=== PATIENT | male | born 1980 ===

== ENCOUNTER 2019-07-22 09:14 | Inpatient (IN) | payer OTHER ==
[2019-07-22] VITALS (19 sets, daily range): BP systolic 110–144; BP diastolic 73–93
[~2019-07-22] VITALS: Ht 157.5 cm; Wt 89.4 kg
[2019-07-22] MEDS ORDERED: LR 1000ml 1,000 ML IVLG SCH (09:37)
--- NOTE | 2019-07-22 09:38 | Anethesia Preoperative Eval ---
Anesthesia Pre-op PMH/ROS General Date of Evaluation: Jul 22, 2019 Time of Evaluation: 11:11 Anesthesiologist: Gwendolyn ASA Score: ASA 2 Mallampati Score Class I : Soft palate, uvula, fauces, pillars visible Class II: Soft palate, uvula, fauces visible Class III: Soft palate, base of uvula visible Class IV: Only hard plate visible Mallampati Classification: Class II Surgeon: Dallin Diagnosis: Back Pain Surgical Procedure: ALIF L5-S1 Anesthesia History: none Family History: no anesthesia problems Allergies: Coded Allergies: No Known Allergies (Unverified , 07/22/19) Medications: see eMAR Patient NPO?: Yes Past Medical History Cardiovascular: Reports: other - HL Gastrointestinal/Genitourinary: Reports: GERD Neurologic/Psychiatric: Reports: depression/anxiety Other: obesity - BMI 36 Anesthesia Pre-op Phys. Exam Physician Exam Vital Signs Date Time Temp Pulse Resp B/P (MAP) Pulse Ox O2 Delivery O2 Flow Rate FiO2 07/22/19 09:51 98.4 71 18 127/80 (96) 97 07/22/19 10:04 Room Air Constitutional: NAD Neurologic: CN 2-12 intact Cardiovascular: RRR Respiratory: CTA Gastrointestinal: S/NT/ND Airway Exam Mallampati Score: Class II MO: full ROM: full Teeth: missing, intact Anesthesia Pre-op A/P Risk Assessment & Plan Assessment: ASA 2 Plan: GA, SED, GlideScope Go Status Change Before Surgery: No Pre-Antibiotics Dru Grams Ancef iv Given Within 1 Hr of Incision: Yes Time Given: 11:31 Gino Snow MD Jul 22, 2019 09:38
[2019-07-22] MEDS ORDERED: Labetalol 5mg/ml 20ml vial IV PRN (09:45)
[2019-07-22] MEDS ORDERED: LORazepam Inj 2mg/ml 1ml IV PRN (09:45)
[2019-07-22] MEDS ORDERED: oxyCODONE HCL/Acetaminophen 5/325mg ORAL PRN (09:45)
[2019-07-22] MEDS ORDERED: HYDROcodone/Acetamin 5/325 tab ORAL PRN (09:45)
[2019-07-22] MEDS ORDERED: Metoclopramide 10mg/2ml Inj IVP PRN (09:45)
[2019-07-22] MEDS ORDERED: Acetaminophen (Non formulary) 100 ML IV ONE (09:45)
[2019-07-22] MEDS ORDERED: Meperidine 50mg/ml Inj(FOR RIGORS ONLY) IVP PRN (09:45)
[2019-07-22] MEDS ORDERED: Ketorolac 30mg Inj IV PRN ×2 (09:45)
[2019-07-22] MEDS ORDERED: Hydromorphone 0.5mg/0.5ml inj IVP PRN (09:45)
[2019-07-22] MEDS ORDERED: HYDROcodone/Acetamin 7.5/325 tab ORAL PRN ×2 (09:45→12:45)
[2019-07-22] MEDS ORDERED: Atropine Sulfate 0.4mg/ml inj IVP PRN (09:45)
[2019-07-22] MEDS ORDERED: DiphenhydrAMINE 50mg/ml Inj IVP PRN ×2 (09:45→13:00)
[2019-07-22] MEDS ORDERED: Midazolam 2mg/2ml Inj IVP PRN (09:45)
[2019-07-22] MEDS ORDERED: fentaNYL 100 mcg/2 mL IV PRN (09:45)
[2019-07-22] MEDS ORDERED: IBUPROFEN600 MG ORAL (10:13)
--- NOTE | 2019-07-22 10:40 | Pre-Procedure Note/Attestation ---
Pre-Procedure Note/Attestation Complete Prior to Procedure Planned Procedure: not applicable Procedure Narrative: Instability with Low Back Pain L5/S1, Planned L5/S1 Anterior Lumbar Decompression and Fusion w/ Instrumentation Indications for Procedure Pre-Operative Diagnosis: Instability with Low Back Pain L5/S1 Attestation I attest that I discussed the nature of the procedure; its benefits; risks and complications; and alternatives (and the risks and benefits of such alternatives ), prior to the procedure, with the patient (or the patient's legal business office representative). I attest that, if there was a reasonable possibility of needing a blood transfusion, the patient (or the patient's legal business office representative) was given the [place] Department [facility] [employer] Services standardized written summary, pursuant to the Ricardo Tallmadge Blood Safety Act ([place] Health and Safety Code # 1645, as amended). I attest that I re-evaluated the patient just prior to the surgery and that there has been no change in the patient's H&P, except as documented below: Kip Ascencio Jul 22, 2019 10:40
[2019-07-22] MEDS ORDERED: Rocuronium Bromide 50mg/5ml Inj IV ONE (10:47)
[2019-07-22] MEDS ORDERED: Sodium Chloride 10ml vial INJ ONE (10:54)
[2019-07-22] MEDS ORDERED: Lidocaine 1% MPF 10mg/ml 5ml ONE (10:54)
[2019-07-22] MEDS ORDERED: Dexamethasone 4mg/ml vial ONE (10:54)
[2019-07-22] MEDS ORDERED: Propofol 1,000mg/ 100ml btl IV ONE (11:00)
[2019-07-22] MEDS ORDERED: Sterile Water Irrig 1000ml IRRIG ONE (11:00)
[2019-07-22] MEDS ORDERED: NS Irrig 1000ml ONE (11:00)
[2019-07-22] MEDS ORDERED: Neostigmine 1mg/ml 10ml Inj ONE (11:00)
[2019-07-22] MEDS ORDERED: LR 1000ml ONE (11:00)
--- NOTE | 2019-07-22 11:04 | Immediate Post-Op Evaluation ---
Immediate Post-Op Evalulation Immediate Post-Op Evalulation Procedure: ALIF L5-S1 Date of Evaluation: Jul 22, 2019 Time of Evaluation: 13:17 IV Fluids: 700 LR Blood Products: 0 Estimated Blood Loss: 40 Urinary Output: 50 Blood Pressure Systolic: 130 Blood Pressure Diastolic: 88 Pulse Rate: 96 Respiratory Rate: 16 O2 Sat by Pulse Oximetry: 96 Temperature (Fahrenheit): 98.2 Pain Score (1-10): 3 Nausea: No Vomiting: No Complications 0 Patient Status: awake, reacts, patent, extubated, none Hydration Status: adequate Dru Grams Ancef IV Given Within 1 Hr of Incision: Yes Time Given: 11:31 Gino Snow MD Jul 22, 2019 11:04
[2019-07-22] MEDS ORDERED: Heparin 5000 units/ml inj ONE (11:05)
[2019-07-22] MEDS ORDERED: Bacitracin 50000 Units Vial ONE (11:06)
[2019-07-22] MEDS ORDERED: fentaNYL 100 mcg/2 mL IV ONE ×2 (11:06→12:26)
[2019-07-22] MEDS ORDERED: Gelfoam Size TOPIC ONE (11:06)
[2019-07-22] MEDS ORDERED: Thrombin 5000 units TOPIC ONE (11:06)
[2019-07-22] MEDS ORDERED: Ropivacaine 5mg/ml Vial 30ml INJ ONE (11:06)
[2019-07-22] MEDS ORDERED: Lidocaine 1% Plain 30 ml INJ ONE (11:08)
[2019-07-22] MEDS ORDERED: Glycopyrrolate 0.2mg/ml 1ml Vial ONE (12:39)
[2019-07-22] MEDS ORDERED: Acetaminophen 650 MG SUPP RECTAL PRN (12:45)
[2019-07-22] MEDS ORDERED: HYDROmorphone 1mg/ml Carpuject IVP PRN (12:45)
[2019-07-22] MEDS ORDERED: Naloxone 0.4mg/ml Inj IVP PRN ×2 (12:45→13:00)
[2019-07-22] MEDS ORDERED: HYDROmorphone 1mg/ml Carpuject SUBQ PRN (12:45)
--- NOTE | 2019-07-22 12:45 | Operative Note - PDOC ---
Operative Note Operative Note Chief Complaint: Low Back Pain Pre-op Diagnosis: Instability with Low Back Pain L5/S1 Procedure: L5/S1 Anterior Lumbar Decompression and Fusion with Instrumentation. Post-op Diagnosis: same as pre-op Operative Findings: consistent w/pre-op dx studies Surgeon: Dallin Trashman: TIMOTHY Ascencio Additional Surgeons: Dr. Redmond - Vascular Access Anesthesiologist: Quinton Cross Anesthesia: general Specimen: yes Complications: none Condition: stable Estimated Blood Loss: minimal Drains: none Implant(s) used?: Yes - Bradley InFix Device with Bradley DBM< Kip Ascencio Jul 22, 2019 12:44
[2019-07-22] MEDS ORDERED: PCA Education Pamphlet MISC ONE (13:00)
[2019-07-22] MEDS ORDERED: LORazepam 1mg tab ORAL PRN (13:00)
[2019-07-22] MEDS ORDERED: Rate Change PCA 1 Each MISC PRN (13:00)
--- NOTE | 2019-07-22 14:30 | NUR ---
Received report from Reshma , pt awake, A/O x 4, complained of headache, dressing on abd , CDI, pt complained of RLE numbness and tingling , pt heena LE able to move toes, warm to touch, NPO, , pts on EXPERIMENTAL MECHANIC ELECTRICAL, an capnography, sat 96-97%, SCDs on heena LE, IVF infusing. ICe packs PRN. pts due to void, call light within reach , bed in low position, bed alarm on , fall precaution maintained. will continue to monitor,.
[2019-07-22] MEDS: PCA HYDROmorphone 1mg/ml 30 ML IV PRN (15:02)
--- NOTE | 2019-07-22 15:40 | Diagnostic Imaging Report ---
INDICATION: Low back pain, intraoperative TECHNIQUE: Intraoperative imaging Fluoroscopy time: 10.9 seconds Total dose: 0.56555 mGym2 Total number of images: 3 COMPARISON: None FINDINGS: Intraoperative imaging demonstrates surgical tool projected anterior to the L5 superior endplate, the anterior S1, and at the level of the L5-S1 disc. Subsequent images document placement of a disc spacer at L5-S1. IMPRESSION: Intraoperative imaging, as described
--- NOTE | 2019-07-22 15:40 | Diagnostic Imaging Report ---
INDICATION: Low back pain, intraoperative TECHNIQUE: Intraoperative imaging Fluoroscopy time: 10.9 seconds Total dose: 0.23065 mGym2 Total number of images: 3 COMPARISON: None FINDINGS: Intraoperative imaging demonstrates surgical tool projected anterior to the L5 superior endplate, the anterior S1, and at the level of the L5-S1 disc. Subsequent images document placement of a disc spacer at L5-S1. IMPRESSION: Intraoperative imaging, as described
[2019-07-22] MEDS: D5 1/2NS w/KCl 20mEq 1,000 ML IV SCH (16:33)
--- NOTE | 2019-07-22 17:30 | Operative Note - Dictated ---
DATE OF OPERATION: 07/22/2019 SURGEON: Kip Zamarripa M.D. SENIOR SCHEDULER: BRIAN Gan. CO-SURGEON: Chevy Redmond M.D. for vascular approach, mobilization of the aorta and vena cava. PREOPERATIVE DIAGNOSES: Unstable spondylolisthesis at L5-S1 with a 12 mm displacement of L5 over S1 and a definable pars defect bilaterally at L5-S1 with evidence of mechanical instability and nerve root irritation involving the L5 and S1 roots bilaterally. POSTOPERATIVE DIAGNOSES: Unstable spondylolisthesis at L5-S1 with a 12 mm displacement of L5 over S1 and a definable pars defect bilaterally at L5-S1 with evidence of mechanical instability and nerve root irritation involving the L5 and S1 roots bilaterally. OPERATIVE PROCEDURE: Anterior retroperitoneal approach to the lumbar spine with vessel mobilization retraction by Dr. Redmond using a table fixed frame, anterior annulotomy, nuclear diskectomy, partial vertebrectomy, bilateral neurolysis L5-S1, open reduction internal fixation of the lumbosacral disc space using an InFix device medium size with 10 mm of height and 9 + 3 degrees of built-in lordosis the 9 degrees being added to the sacral side of the construct, bone grafting using bone morphogenic protein and local bone with use of Cell Saver and image intensification. DESCRIPTION OF PROCEDURE: The patient was prepped and draped in the supine position after induction of satisfactory general anesthesia. Approach was accomplished by Dr. Redmond mobilizing the aorta and vena cava clearing the middle sacral and exposing the anterior anulus of the disc at L5-S1. Center of the disc was marked and checked with image intensification. The anterior anulus was then incised with a 10 blade and the periosteal edges of the soft tissue covering at the anterior inferior aspect of the body of L5 and the superior aspect anteriorly in the sacrum was then removed with sharp dissection and with cautery. The cartilaginous end plate on the inferior aspect of L5 and the superior aspect of the sacrum was then removed using angled and straight larger smaller angled curettes, Kerrisons, and pituitaries. Lordotic distraction plugs were placed right and left beginning at 8 mm and extending to 15 in order to create further visualization for posterior dissection to the posterior aspect of the vertebral body of L5 and S1 where the posterior disc anulus was released. Osteophytes were removed and a bilateral foraminotomy was accomplished. Once the entire disc and cartilaginous end plate had been removed centrally, the lateral anulus and disc was left intact. A spacer 10 mm of medium construct was used. 9 + 3 degrees of lordosis were added to the final endplates, which were inserted. Again rechecked for position. The side struts were then inserted and cold welded and the position of the implant was again checked. There was a promontory of the anterior sacrum, but good contact of the inferior endplate and the superior endplate with good central positioning of the implant on AP view and good positioning as well within a couple millimeters of the canal floor on lateral with good contact on each of the endplates. The vessels were checked. The wound was closed in layers including the anterior posterior sheath, subcutaneous, and skin. The patient was placed in a bulky compression dressing, returned to recovery room in good condition. Kip Zamarripa M.D. DR: CHEIKH JOB#: [id number] CC:
--- NOTE | 2019-07-22 18:00 | Operative Note - Dictated ---
DATE OF OPERATION: 07/22/2019 VASCULAR SURGEON: Chevy Redmond M.D. SPINE SURGEON: Kip Zamarripa M.D. CONTROL SYSTEMS DESIGNER: Irene Gan PREOPERATIVE DIAGNOSIS: Lumbar pain. POSTOPERATIVE DIAGNOSIS: Lumbar pain. PROCEDURE PERFORMED: Anterior retroperitoneal exposure L5-S1, right retroperitoneal approach. INDICATIONS: The patient is a very pleasant gentleman who was seen prior to surgery. No prior anterior abdominal surgery. No history of deep venous thrombosis. Bleeding complications were described. He has been made aware of the risks of vascular surgery including vascular injury, possible need for blood transfusion, deep venous thrombosis. DESCRIPTION OF FINDINGS: A low vertical midline incision was used. A right retroperitoneal approach was used. There was no peritoneal or ureteral violation. There was no vascular injury. Exposure of L5-S1 obtained below the iliac bifurcation confirmed using fluoroscopy. On completion, the peritoneum and ureter intact. Iliac vessels are intact. BLOOD LOSS: Less than 100 mL. COMPLICATIONS: None. DESCRIPTION OF PROCEDURE: The patient was taken to the operative room. General anesthesia was used. IV antibiotics given. Vickers catheter was placed. The patient's abdomen prepped and draped. Appropriate time-out for the procedure taken. A vertical midline incision made infraumbilically. The anterior fascia incised longitudinally in the midline. A plane was identified posterior to the right rectus abdominis and developed posterolaterally towards the patient's right. The retroperitoneal space was entered below the arcuate line. The peritoneum and ureter mobilized towards the patient's left exposing the right common iliac artery and vein. Dissection was carried superiorly and medially along the right iliac vessels. The anterior surface of L5-S1 palpated. The peritoneum and ureter mobilized towards the patient's left exposing the anterior surface of L5-S1. The medial border of the left iliac vein identified and swept laterally. The middle sacral vessels were ligated with vascular clips and divided and this allowed us to then expose the anterior surface of L5-S1. The Omni retractor blade was set in place. Fluoroscopy used to confirm the appropriate level. The instrumentation performed as dictated separately. On completion, the peritoneum and ureter intact. Iliac vessels were intact. Blood loss was less than 100 mL. The anterior fascia was then closed using #1 PDS in a running fashion. Skin and subcutaneous tissue were closed with 3-0 Vicryl, 4-0 Monocryl running subcuticular closure technique. Estimated blood loss less than 100 mL. Complications none. Chevy Redmond M.D. DR: BEAU JOB#: [id number] CC:
--- NOTE | 2019-07-22 18:54 | NUR ---
pt denies numbness or tingling on RLE/LLE, able to move toes, warm to touch, SCDs on, VS stable, due to void, will continue to monitor.
[2019-07-22] MEDS: PCA shift volume MISC SCH (19:00)
--- NOTE | 2019-07-22 19:30 | NUR ---
NURSE NOTES: Pt. received from KATARZYNA Bray. Pt. AAOx4, NC at 3L/min, O2 sat. 97%, wave capnography 36, no signs of respiratory distress and no shortness of breath at this time. Pt. on MANAGER MEDICAL, no complaints of pain. IV site right hand 20g asymptomatic, intact and patent; running D5 1/2NS with 20 mEq KCl at 100 cc/hr. Abdominal dressing clean, dry, and intact. Bed is low and locked, side rails x2 up, and call light is in reach. Will continue to monitor.
[2019-07-22] MEDS: ceFAZolin sod 1 GM in D5W 55 ML IV SCH (19:56)
[2019-07-23] VITALS (8 sets, daily range): BP systolic 104–122; BP diastolic 61–82
[2019-07-23] MEDS: D5 1/2NS w/KCl 20mEq 1,000 ML IV SCH ×3 (02:13→22:31)
[2019-07-23] MEDS: ceFAZolin sod 1 GM in D5W 55 ML IV SCH ×2 (02:13→10:14)
[2019-07-23] MEDS: PCA shift volume MISC SCH ×2 (07:26→19:07)
--- NOTE | 2019-07-23 07:48 | NUR ---
HAND-OFF: Report given to KATARZYNA Bingham.
--- NOTE | 2019-07-23 07:48 | NUR ---
NURSE NOTES: received patient in bed, patient AAOx4, RA, no signs of respiratory distress , denies pain or discomfort at this time, Patient on RETAIL SERVICES PROFESSIONAL,IVF patent and infusing well. Abdominal dressing clean, dry, and intact. Bed is low and locked, side rails x2 up, and call light is in reach.encouraged to use IS 10X/H, Encouraged to ambulate, Will continue to monitor. corinna ballard
--- NOTE | 2019-07-23 08:05 | General Progress Note ---
Assessment/Plan Assessment/Plan: Low Back Pain Instability with Low Back Pain L5/S1 L5/S1 Anterior Lumbar Decompression and Fusion with Instrumentation. PLAN 1. incentive spirometry 2. SCD 3. PT evaluation and therapy 4. Hydration 5. Pain management 6. discharge once stable with outpatient follow up Subjective Allergies: Coded Allergies: No Known Allergies (Unverified , 07/22/19) Subjective care noted post op care noted Objective Last 24 Hour Vital Signs Date Time Temp Pulse Resp B/P (MAP) Pulse Ox O2 Delivery O2 Flow Rate FiO2 07/23/19 04:00 65 15 99 07/23/19 04:00 98.5 65 15 107/71 (83) 99 07/23/19 00:00 66 20 98 07/23/19 00:00 98.6 66 20 122/82 (95) 98 07/22/19 21:00 Nasal Cannula 3.0 07/22/19 21:00 97.9 71 16 110/74 (86) 97 07/22/19 20:00 71 16 97 07/22/19 18:18 97 Nasal Cannula 2.0 28 07/22/19 18:00 98.3 79 18 111/73 (86) 97 07/22/19 18:00 79 18 97 07/22/19 17:00 98.6 85 20 115/80 (92) 98 07/22/19 17:00 75 19 96 07/22/19 16:30 74 18 95 07/22/19 16:27 98.9 83 18 116/73 (87) 97 07/22/19 16:00 98.3 80 18 121/82 (95) 96 07/22/19 16:00 78 20 96 07/22/19 15:45 87 20 95 07/22/19 15:45 98.1 80 18 122/78 (93) 96 07/22/19 15:39 88 18 96 07/22/19 15:32 97.8 07/22/19 15:15 98.1 79 18 128/80 (96) 95 07/22/19 15:15 79 18 95 07/22/19 15:00 80 17 94 07/22/19 14:49 97.8 80 18 124/79 (94) 94 07/22/19 14:00 97.5 77 15 132/85 96 Nasal Cannula 3 07/22/19 13:45 79 19 138/88 98 Nasal Cannula 3 07/22/19 13:30 71 14 139/78 97 Nasal Cannula 3 07/22/19 13:20 85 16 144/93 96 Simple Mask 6 07/22/19 13:10 73 15 120/79 97 Simple Mask 6 07/22/19 13:06 98.2 85 16 130/88 96 Simple Mask 6 07/22/19 13:03 96 16 96 07/22/19 10:04 Room Air 07/22/19 09:51 98.4 71 18 127/80 (96) 97 Intake and Output 07/22/19 07/23/19 19:00 07:00 Intake Total 150 ml 1100 ml Output Total 100 ml 350 ml Balance 50 ml 750 ml Intake IV Total 150 ml 1100 ml Output Urine Total 100 ml 350 ml # Voids 1 2 Height (Feet): 5 Height (Inches): 2.00 Weight (Pounds): 197 Objective WDWN NAD clear breath sounds bilaterally without rhonchi or wheeze [id number] without MRG NABS nontender no HSM no CCE nonfocal Jeffery Pelaez MD Jul 23, 2019 08:05
--- NOTE | 2019-07-23 08:44 | General Surgery Progress Note ---
General Surgery-Progress Note Subjective Procedure Performed L5/S1 Anterior Lumbar Decompression and Fusion with Instrumentation. Symptoms: improved Objective Last 24 Hour Vital Signs Date Time Temp Pulse Resp B/P (MAP) Pulse Ox O2 Delivery O2 Flow Rate FiO2 07/23/19 04:00 65 15 99 07/23/19 04:00 98.5 65 15 107/71 (83) 99 07/23/19 00:00 66 20 98 07/23/19 00:00 98.6 66 20 122/82 (95) 98 07/22/19 21:00 Nasal Cannula 3.0 07/22/19 21:00 97.9 71 16 110/74 (86) 97 07/22/19 20:00 71 16 97 07/22/19 18:18 97 Nasal Cannula 2.0 28 07/22/19 18:00 98.3 79 18 111/73 (86) 97 07/22/19 18:00 79 18 97 07/22/19 17:00 98.6 85 20 115/80 (92) 98 07/22/19 17:00 75 19 96 07/22/19 16:30 74 18 95 07/22/19 16:27 98.9 83 18 116/73 (87) 97 07/22/19 16:00 98.3 80 18 121/82 (95) 96 07/22/19 16:00 78 20 96 07/22/19 15:45 87 20 95 07/22/19 15:45 98.1 80 18 122/78 (93) 96 07/22/19 15:39 88 18 96 07/22/19 15:32 97.8 07/22/19 15:15 98.1 79 18 128/80 (96) 95 07/22/19 15:15 79 18 95 07/22/19 15:00 80 17 94 07/22/19 14:49 97.8 80 18 124/79 (94) 94 07/22/19 14:00 97.5 77 15 132/85 96 Nasal Cannula 3 07/22/19 13:45 79 19 138/88 98 Nasal Cannula 3 07/22/19 13:30 71 14 139/78 97 Nasal Cannula 3 07/22/19 13:20 85 16 144/93 96 Simple Mask 6 07/22/19 13:10 73 15 120/79 97 Simple Mask 6 07/22/19 13:06 98.2 85 16 130/88 96 Simple Mask 6 07/22/19 13:03 96 16 96 07/22/19 10:04 Room Air 07/22/19 09:51 98.4 71 18 127/80 (96) 97 I&O Intake and Output 07/22/19 07/23/19 19:00 07:00 Intake Total 150 ml 1100 ml Output Total 100 ml 350 ml Balance 50 ml 750 ml Intake IV Total 150 ml 1100 ml Output Urine Total 100 ml 350 ml # Voids 1 2 Dressing: dry Wound: clean Drains: none Additional Comments Patient NPO. Should ambulate today with Physical Therapy. Needs brace from home. Dr. Leonardo following. Kip Ascencio Jul 23, 2019 08:44
--- NOTE | 2019-07-23 12:26 | 48 Hour Post Anesthesia Eval ---
Post Anesthesia Evaluation Procedure: ALIF L5-S1 Date of Evaluation: Jul 23, 2019 Time of Evaluation: 12:25 Blood Pressure Systolic: 124 0: 78 Pulse Rate: 72 Respiratory Rate: 20 Temperature (Fahrenheit): 97.6 O2 Sat by Pulse Oximetry: 98 Airway: patent Nausea: No Vomiting: No Pain Intensity: 3 Hydration Status: adequate Cardiopulmonary Status: stable Mental Status/LOC: patient returned to baseline Follow-up Care/Observations: n/a Post-Anesthesia Complications: none Follow-up care needed: N/A Cecilio Cardenas MD Jul 23, 2019 12:26
--- NOTE | 2019-07-23 13:37 | NUR ---
CASE MANAGEMENT: INITIAL REVIEW 39YR OLD MALE HERE FOR ELECTIVE SURG CC: BACK PAIN SI: INSTABILITY WITH LOW BACK PAIN L5/S1 98.4 71 18 128/80 97% ON RA IS: L5/S1 ANTERIOR LUMBAR DECOMPRESSION AND FUSION WITH INSTRUMENTATION IV D5 @100ML/HR IV ANCEF X3 BAGS ELECTRONIC WARFARE LINGUIST DILAUDID BID \: IN SURGERY NOW CASE MANAGEMENT: REVIEW 07/23/2019 SI: POD# 1 L5/S1 ANTERIOR LUMBAR DECOMPRESSION AND FUSION WITH INSTRUMENTATION 98.4 71 18 128/80 97% ON RA IS: IV D5 @100ML/HR ELECTRONIC WARFARE LINGUIST DILAUDID BID \: 3E MED SURG UNIT
--- NOTE | 2019-07-23 13:50 | NUR ---
PT EVALUATION NOTE Patient seen for initial evaluation. Patient educated in back precautions and proper log roll technique. Patient required min assist for bed mobility tasks using log roll technique. Patient required CGA for transfers with FWW and SBA for ambulation. Patient able to ambulate 100 ft with FWW, slowed pace. Patient will benefit from skilled inpatient PT intervention to address strength, balance and safety for improved level of functional mobility and compliance with back precautions. Anticipate discharge home once medically cleared by MD. May benefit from use of FWW for ambulation once medically cleared by MD. Addendum: 07/23/19 at 1429 by BRITT LUGO PT Amended: Links added.
[2019-07-23] MEDS: PCA HYDROmorphone 1mg/ml 30 ML IV PRN (15:00)
--- NOTE | 2019-07-23 19:11 | NUR ---
HAND-OFF: Report given to Mr Kel RN accordingly corinna faith
--- NOTE | 2019-07-23 19:19 | NUR ---
NURSE NOTES: Pt. received from KATARZYNA Infante. Pt. AAOx4, on room air, no signs of respiratory distress and no shortness of breath at this time. Pt. complains of pain, tolerable; STAFF NURSE ANESTHETIST connected. IV site right hand 20g asymptomatic, intact and patent; running D5 1/2NS with 20 mEq KCl at 100 cc/hr. Abdominal dressing clean, dry, and intact. Bed is low and locked, side rails x2 up, and call light is in reach. Will continue to monitor. Addendum: 07/23/19 at 1944 by Martin Begum RN Correction: Received patient from KATARZYNA Bingham.
--- NOTE | 2019-07-23 19:37 | NUR ---
HAND-OFF: Report given to KATARZYNA Begum accordingly katarzyna faith
[2019-07-24] VITALS (7 sets, daily range): BP systolic 115–128; BP diastolic 70–90
--- NOTE | 2019-07-24 | NUR ---
NURSE NOTES: Ambulated pt around hallway with assist; back brace on. Steady gait. Pt in no distress.
[2019-07-24] MEDS: PCA shift volume MISC SCH (07:33)
--- NOTE | 2019-07-24 07:40 | NUR ---
NURSE NOTES: Report received from Martin COLÓN. Patient awake and alert x 4 in bed. Patient [place] speaking. Patient has no complaints at this time, does not yet report to be passing flatus or having a BM. Will continue to follow NPO diet. Educated patient to call when need to get up. Patient communicated that he would ask for help. patient requires back brace and walker when OOB. Bed locked and in lowest position. Call light within reach. Will continue to follow plan of care.
--- NOTE | 2019-07-24 07:40 | NUR ---
HAND-OFF: Report given to KATARZYNA Shrestha and Joe COLÓN.
[2019-07-24] MEDS: D5 1/2NS w/KCl 20mEq 1,000 ML IV SCH ×2 (08:17→17:34)
--- NOTE | 2019-07-24 09:48 | General Progress Note ---
Assessment/Plan Assessment/Plan: Low Back Pain Instability with Low Back Pain L5/S1 L5/S1 Anterior Lumbar Decompression and Fusion with Instrumentation. PLAN 1. incentive spirometry 2. SCD 3. PT evaluation and therapy 4. Hydration 5. Pain management 6. discharge planning Subjective Allergies: Coded Allergies: No Known Allergies (Unverified , 07/22/19) Subjective care noted post op care noted Objective Last 24 Hour Vital Signs Date Time Temp Pulse Resp B/P (MAP) Pulse Ox O2 Delivery O2 Flow Rate FiO2 07/24/19 08:00 97.3 77 20 120/82 (95) 96 07/24/19 04:00 81 14 95 07/24/19 04:00 98.3 81 14 121/79 (93) 95 07/24/19 00:00 67 16 95 07/24/19 00:00 99.1 67 16 115/80 (92) 95 07/23/19 21:00 Room Air 07/23/19 20:00 98.5 67 18 116/78 (91) 99 07/23/19 20:00 67 18 99 07/23/19 19:58 98 Nasal Cannula 2.0 28 07/23/19 16:29 98.0 69 16 110/77 (88) 6 07/23/19 16:00 69 14 96 07/23/19 15:01 69 14 96 07/23/19 12:26 72 20 98 07/23/19 12:00 69 14 96 07/23/19 12:00 98.4 73 16 110/77 (88) 99 Intake and Output 07/23/19 07/24/19 19:00 07:00 Intake Total 1150 ml 1100 ml Output Total 1050 ml 1100 ml Balance 100 ml 0 ml Intake IV Total 1150 ml 1100 ml Output Urine Total 1050 ml 1100 ml # Voids 1 Height (Feet): 5 Height (Inches): 2.00 Weight (Pounds): 197 Objective WDWN NAD clear breath sounds bilaterally without rhonchi or wheeze [id number] without MRG NABS nontender no HSM no CCE nonfocal Jeffery Pelaez MD Jul 24, 2019 09:48
--- NOTE | 2019-07-24 12:30 | NUR ---
NURSE NOTES: BANK OPERATIONS OFFICER discharged per orders of MD. BANK OPERATIONS OFFICER syringed removed from pump. 25.6 VTBI infused noted left in syringe. Syringe brought down to pharmacy. Will continue to monitor pain and follow plan of care.
--- NOTE | 2019-07-24 17:45 | NUR ---
NURSE NOTES: Patient passing flatus. Patient able to have a medium, formed bowel movement. Denies abdominal pain, nausea, and vomiting. Will assess how tolerates dinner. Will continue to follow plan of care.
--- NOTE | 2019-07-24 19:20 | NUR ---
NURSE NOTES: Pt received in bed awake, able to make needs known, call light within reach, no c/o pain or signs of distress, IV fluids running, pt with back brace, ambulaotory, will continue to monitor.
--- NOTE | 2019-07-24 19:30 | NUR ---
HAND-OFF: Report given to Cary COLÓN. Patient awake and alert x 4. Patient in stable condition.
[2019-07-25] VITALS: BP 133/85
[2019-07-25] MEDS: D5 1/2NS w/KCl 20mEq 1,000 ML IV SCH (05:09)
--- NOTE | 2019-07-25 07:23 | NUR ---
HAND-OFF: Report given to KATARZYNA Shrestha.
--- NOTE | 2019-07-25 07:45 | NUR ---
NURSE NOTES: Pt lying in bed w/bed in lowest position and call light within reach. Pt A&Ox4, VSS, and in no apparent distress. IV site intact/asymptomatic w/IVF infusing and surgical dressing stained but otherwise C/D/I. Pt has no complaints or concerns at this time. Will continue to monitor.
[2019-07-25 08:00] VITALS: BP 124/82
--- NOTE | 2019-07-25 10:14 | General Surgery Progress Note ---
General Surgery-Progress Note Subjective Procedure Performed L5/S1 Anterior Lumbar Decompression and Fusion with Instrumentation. Symptoms: improved Objective Last 24 Hour Vital Signs Date Time Temp Pulse Resp B/P (MAP) Pulse Ox O2 Delivery O2 Flow Rate FiO2 07/25/19 09:00 Room Air 07/25/19 08:00 98.7 77 20 124/82 (96) 98 07/25/19 07:00 97 Room Air 21 07/25/19 00:00 99.8 86 20 133/85 (101) 95 07/24/19 21:00 Room Air 07/24/19 20:00 99.0 89 20 128/90 (103) 96 07/24/19 19:28 98 Room Air 21 07/24/19 17:51 Room Air 07/24/19 16:00 98.3 68 19 121/76 (91) 99 07/24/19 12:00 80 19 96 07/24/19 11:52 98.8 80 19 118/70 (86) 97 I&O Intake and Output 07/24/19 07/25/19 19:00 07:00 Intake Total 1380 ml 1140 ml Balance 1380 ml 1140 ml Intake Oral 480 ml 240 ml IV Total 900 ml 900 ml # Voids 2 # Bowel Movements 1 1 Dressing: dry Wound: clean Additional Comments Patient tolerating regular diet. Wearing brace. Has Rx for Jetpac, if insurance will approve, otherwise will have to purchase on own. Dr. Pelaez following. Kip Ascencio Jul 25, 2019 10:14
[2019-07-25 12:00] VITALS: BP 128/92
--- NOTE | 2019-07-25 13:09 | General Progress Note ---
Assessment/Plan Assessment/Plan: Low Back Pain Instability with Low Back Pain L5/S1 L5/S1 Anterior Lumbar Decompression and Fusion with Instrumentation. PLAN 1. incentive spirometry 2. SCD 3. PT evaluation and therapy 4. Hydration 5. Pain management 6. discharge planning per surgery Subjective Allergies: Coded Allergies: No Known Allergies (Unverified , 07/22/19) Subjective care noted post op care noted Objective Last 24 Hour Vital Signs Date Time Temp Pulse Resp B/P (MAP) Pulse Ox O2 Delivery O2 Flow Rate FiO2 07/25/19 12:00 99.5 88 20 128/92 (104) 96 07/25/19 09:00 Room Air 07/25/19 08:00 98.7 77 20 124/82 (96) 98 07/25/19 07:00 97 Room Air 21 07/25/19 00:00 99.8 86 20 133/85 (101) 95 07/24/19 21:00 Room Air 07/24/19 20:00 99.0 89 20 128/90 (103) 96 07/24/19 19:28 98 Room Air 21 07/24/19 17:51 Room Air 07/24/19 16:00 98.3 68 19 121/76 (91) 99 Intake and Output 07/24/19 07/25/19 19:00 07:00 Intake Total 1380 ml 1140 ml Balance 1380 ml 1140 ml Intake Oral 480 ml 240 ml IV Total 900 ml 900 ml # Voids 2 # Bowel Movements 1 1 Height (Feet): 5 Height (Inches): 2.00 Weight (Pounds): 197 Objective WDWN NAD clear breath sounds bilaterally without rhonchi or wheeze [id number] without MRG NABS nontender no HSM no CCE nonfocal Jeffery Pelaez MD Jul 25, 2019 13:09
[2019-07-25 16:00] VITALS: BP 131/85
--- NOTE | 2019-07-25 19:24 | NUR ---
HAND-OFF: Report given to KATARZYNA Bell.
--- NOTE | 2019-07-25 19:43 | NUR ---
NURSE NOTES: Received report from KATARZYNA Shrestha. Patient is sitting comfortably in chair. Abdominal binder is on. Dressing is c/d/i. Right hand IV is asymptomatic and saline locked. No c/o pain or SOB on room air. Ambulates with walker, tolerating well. Will continue plan of care.
[2019-07-25 20:00] VITALS: BP 121/87
[2019-07-26 04:00] VITALS: BP 125/83
--- NOTE | 2019-07-26 07:38 | NUR ---
HAND-OFF: Report given to KATARZYNA Perez. Patient is stable.
[2019-07-26 08:00] VITALS: BP 122/85
--- NOTE | 2019-07-26 08:00 | NUR ---
NURSE NOTES: Received report from Clay RN, pt a/a/o x4 laying in bed with no signs of distress or other issues at this time. surgical dressing stain. IV on the right FA heplock. call light within reach, bed in lowest position. side rales up x2. call light within reach, bed in lowest position. plan to d/c home today. I will f/u as needed.
--- NOTE | 2019-07-26 08:40 | General Progress Note ---
Assessment/Plan Assessment/Plan: Low Back Pain Instability with Low Back Pain L5/S1 L5/S1 Anterior Lumbar Decompression and Fusion with Instrumentation. PLAN 1. incentive spirometry 2. SCD/ duplex negative 3. PT evaluation and therapy 4. Hydration- tolerating po 5. Pain management 6. discharge planning per surgery Subjective Allergies: Coded Allergies: No Known Allergies (Unverified , 07/22/19) Subjective care noted post op care noted Objective Last 24 Hour Vital Signs Date Time Temp Pulse Resp B/P (MAP) Pulse Ox O2 Delivery O2 Flow Rate FiO2 07/26/19 08:00 98.6 83 17 122/85 (97) 95 07/26/19 07:44 96 Room Air 21 07/26/19 04:00 98.3 81 16 125/83 (97) 99 07/25/19 21:00 Room Air 07/25/19 20:44 97 Room Air 21 07/25/19 20:00 98.3 94 18 121/87 (98) 95 07/25/19 16:00 99.1 84 20 131/85 (100) 98 07/25/19 12:00 99.5 88 20 128/92 (104) 96 07/25/19 09:00 Room Air Intake and Output 07/25/19 07/26/19 19:00 07:00 Intake Total 480 ml 120 ml Balance 480 ml 120 ml Intake Oral 480 ml 120 ml # Voids 2 Height (Feet): 5 Height (Inches): 2.00 Weight (Pounds): 197 Objective WDWN NAD clear breath sounds bilaterally without rhonchi or wheeze [id number] without MRG NABS nontender no HSM no CCE nonfocal Jeffery Pelaez MD Jul 26, 2019 08:40
--- NOTE | 2019-07-26 11:48 | NUR ---
CASE MANAGEMENT: REVIEW 07/24/2019 SI: POD# 2 L5/S1 ANTERIOR LUMBAR DECOMPRESSION AND FUSION WITH INSTRUMENTATION 97.3 77 20 120/82 96 % ON RA IS: IV DILAUDID Q2HR/PRN IV ZOFRAN Q6HR/PRN \: 3E MED SURG UNIT CASE MANAGEMENT: REVIEW 07/25/2019 SI: POD# 3 L5/S1 ANTERIOR LUMBAR DECOMPRESSION AND FUSION WITH INSTRUMENTATION 99.5 88 20 128/92 96 % ON RA IS: IV DILAUDID Q2HR/PRN IV ZOFRAN Q6HR/PRN \: 3E MED SURG UNIT CASE MANAGEMENT: REVIEW 07/26/2019 SI: POD# 4 L5/S1 ANTERIOR LUMBAR DECOMPRESSION AND FUSION WITH INSTRUMENTATION 98.6 83 17 122/85 95% ON RA IS: IV DILAUDID Q2HR/PRN IV ZOFRAN Q6HR/PRN \: 3E MED SURG UNIT PLAN: DC PLANNING PER SURGERY
[2019-07-26 12:00] VITALS: BP 139/85
--- NOTE | 2019-07-26 15:00 | NUR ---
NURSE NOTES: Received d/c order. discharge instruction and belongings given to patient. IV removed prior to d/c. pt is aware that his RX for his pain is at the pharmacy and that he will need to fallow up with the machine adjuster from workers comp to get authorization. patient verbalized understanding and stated that he already left a message to his machine adjuster. pt left the floor with no signs of distress or other issues at this time. pt's will provide transportation. I will f/u as needed.
--- NOTE | 2019-07-28 08:09 | Discharge Summary ---
Discharge Summary Hospital Course Date of Admission Jul 22, 2019 at 09:14 Date of Discharge Jul 26, 2019 at 14:55 Admitting Diagnosis Reason for Hospitalization: elective surgery HPI Michael Caro is a 39 year old male who was admitted on Jul 22, 2019 at 09:14 for Instability At Level L5-S1, Pain Of Ligaments Of Consultations dr Pelaez -IM Procedures s/p 07/23/[address] Zamarripa Anterior retroperitoneal approach to the lumbar spine with vessel mobilization retraction by Dr. Redmond using a table fixed frame, anterior annulotomy, nuclear diskectomy, partial vertebrectomy, bilateral neurolysis L5-S1, open reduction internal fixation of the lumbosacral disc space using an InFix device medium size with 10 mm of height and 9 + 3 degrees of built-in lordosis the 9 degrees being added to the sacral side of the construct, bone grafting using bone morphogenic protein and local bone with use of Cell Saver and image intensification. s/p 07/23/[address] Redmond Anterior retroperitoneal exposure L5-S1, right retroperitoneal approach Hospital Course status post surgery course of recovery uneventful initially IV fluids s/p perioperative antibiotics NPO status neurovascular status closely monitored, remained stable incision with dressing clean, dry and intact pain management was addressed ; and pain was controlled remained hemodynamically stable ambulated with PT fall precautions maintained; safe for ambulation DVT prophylaxis provided use of incentive spirometry was encouraged while in the bed when bowel function returned, started on liquid diet and advanced as tolerated patient was able to tolerate diet; IV fluids were discontinued GI prophylaxis provided antiemetics were on board as needed voided freely bowel regimen instituted patient was stable for discharge discharge instructions provided follow up with surgeon in the office as outpatient as advised FINAL DIAGNOSES -Unstable spondylolisthesis at L5-S1 with a 12 mm displacement of L5 over S1 and a definable pars defect bilaterally at L5-S1 with evidence of mechanical instability and nerve root irritation, involving the L5 and S1 roots bilaterally -Low back pain -Instability with low back pain L5/S1 -L5/S1 Anterior lumbar decompression and fusion with instrumentation. Discharge Condition Upon Discharge: stable Discharge Disposition Patient was discharged home Discharge Instructions Discharge Instructions Special Instructions I have been assigned to complete a D/C Summary on this account. I was not involved in the patient management Enma Santana [employer] Jul 28, 2019 08:09
== END 2019-07-26 14:55 | disposition home or self-care (01) | DRG 460 ==
LOC: SDSOVERFLO 09:14 → 3E 14:19
DX: M43.17 Spondylolisthesis, lumbosacral region (principal); M53.2X7 Spinal instabilities, lumbosacral region
CPT/HCPCS: 36415; 72020; 76000; 86850; 86900; 86901; 87081; 94003; 94150; J2405; J2710; J7030